=== PATIENT | male | born 2000 | race Caucasian/White ===

== ENCOUNTER 2021-08-03 08:16 | Day surgery (SDC) | payer OTHER ==
[~2021-08-03] VITALS: Ht 167.6 cm; Wt 55.0 kg
[2021-08-03] VITALS (139 sets, daily range): BP systolic 77–156; BP diastolic 40–111
--- NOTE | 2021-08-03 07:26 | NUR ---
PATIENT AMBULATORY TO ROOM. PATIENT IS ALERT AND ORIENTED X3. CONSENTS OBTAINED. VITALS OBTAINED. DR CONTRERAS NOTIFIED. NEW ORDERS RECEIVED. ADMISSION ASSESSMENT COMPLETED AT THIS TIME. IV ESTABLISHED. LABS SENT FOR REFERENCE. ORIENTED PATIENT TO ROOM AND UNIT. CALL LIGHT IN REACH. WILL CONTINUE TO MONITOR.
[2021-08-03 09:11] LABS: HEMATOCRIT 42.7 % (39.0-50.0); HEMOGLOBIN 13.6 g/dl (14.0-18.0); IMMATURE GRANULOCYTES 0.2 % (0.0-5.0); MEAN CELL VOLUME 88.6 fL CALC (80.0-100.0); MEAN CORPUSCULAR HGB 28.2 pG CALC (26.0-32.0); MEAN CORPUSCULAR HGB CONC 31.9 g/dL CAL (32.0-36.0); NEUT# 4.46 thou/uL (1.82-7.42); RED BLOOD COUNT 4.82 mill/uL (4.70-6.10); RED CELL DISTRI WIDTH 12.8 % (11.5-15.5)
[2021-08-03 09:27] LABS: ALBUMIN 4.2 g/dL (3.2-5.0); ALKALINE PHOSPHATASE 81 u/l (38-126); ANION GAP 13 (6-22 (CALC)); BILIRUBIN, TOTAL 0.5 mg/dL (0.0-1.4); BUN 15 mg/dL (9-20); BUN/CREATININE RATIO 16 (12-20 (CALC)); CARBON DIOXIDE 31 mmol/l (22-30); CHLORIDE 98 mmol/l (95-108); CREATININE 0.9 mg/dL (0.7-1.3); GFR > 60 ML/MIN (>=60 (CALC)); GFR FOR AFR.AMER. > 60 ML/MIN (>=60 (CALC)); POTASSIUM 3.7 mmol/l (3.5-5.1); SGOT/AST 24 u/l (17-59); SODIUM 138 mmol/l (137-146); TOTAL PROTEIN 6.9 g/dL (6.3-8.2)
--- NOTE | 2021-08-03 09:45 | NUR ---
DR CONTRERAS AT BEDSIDE AT THIS TIME.
--- NOTE | 2021-08-03 11:50 | NUR ---
Induction Note Patient to [facility] procedure room. Time out performed at 1150. Patient placed on monitors, Quinn hugger, bilateral wrist restraints applied for ET tube protection. Versed 5mg given IV push at 1150 Tourniquet applied to right arm Lidocaine 100mg given at 1151 IV push followed by Rocoronium 10mg at 1151 IV push and held for 90 seconds. Propofol bolus of mg given at IV push. Succinylcholine 80mg given IV push at 1152. Smooth intubation with 7.5 ETT. Positive CO2. Positive Auscultation for air exchange. Patient placed on ventilator for spontaneous ventilation. Placed on Propofol IV drip at 1153. OG inserted. Positive air on auscultation. Positive gastric content. Stomach washed at this time. Naltrexone 75mg given via OG tube. OG clamped for 45 minutes. Will monitor patient for symptoms of withdrawal and adjust propfol accordingly.
--- NOTE | 2021-08-03 13:00 | NUR ---
OG open note OG open at this time. Gastric content draining into drainage bag. OG to drain for 45 minutes. Propofol will be titrated down based on patient.
--- NOTE | 2021-08-03 13:45 | NUR ---
OG close note Stomach washed at this time. Naltrexone 50 mg with Clonidine 0.2 mg via OG tube. OG will be clamped for 45 minutes.
--- NOTE | 2021-08-03 15:00 | NUR ---
naltrexone 12.5mg given and clonidine 0.2mg given via og will prepare to extubate
--- NOTE | 2021-08-03 16:00 | NUR ---
Extubation note Closing medications given Benadryl 50mg IV push, Decadron 10mg IV push,Magnesium 4 grams IV, Zofran 8mg IV push, Octreotide 100mcg SC. Stomach washed out prior to extubation. Suctioned gastric content. OG removed. Patient extubated. Propofol Discontinued. Wrist restraints removed. Quinn hugger Removed. See [facility] Moderate sedate recovery record for further notes and assessment.
--- NOTE | 2021-08-03 16:35 | NUR ---
RECIEVED REPORT FROM RILEY MCKAY. PT ARRIVED TO FLOOR AT THIS TIME VIA BED IN STABLE CONDITION. VITALS COMPLETED. VSS. #20G RCA INFUSING WITH IVF PER ORDER. REPSIRATIONS SHALLOW ON ROOM AIR. NO SIGNS OF ANY DISTRESS. SAFTEY PRECAUTIONS IN PLACE WITH CALL LIGHT IN REACH. BED ALARM ACTIVE.
--- NOTE | 2021-08-03 20:21 | NUR ---
REPORT GIVEN BY KAILEY GAXIOLA. PATIENT RESTING IN BED. RESP EVEN AND UNLABORED. NO S/S OF DISTRESS NOTED. FALL AND SAFTEY PRECAUTIONS IN PLACE. PATIENT INFORMED TO CALL WITH ANY QUESTIONS OR CONCENRS. IV SALINE LOCKED. PATIENT DRINKING WATER AND SWALLOWING WELL. ALERT TO SELF.
--- NOTE | 2021-08-03 22:30 | NUR ---
PATIENT REMOVED ONE OF HIS IV'S
--- NOTE | 2021-08-04 01:00 | NUR ---
PATIENT REMOVED HIS OTHER IV SITE. NEW IV STARTED 20 RAC
[2021-08-04 02:34] VITALS: BP 114/66
[2021-08-04 05:19] LABS: HEMATOCRIT 38.1 % (39.0-50.0); HEMOGLOBIN 12.9 g/dl (14.0-18.0); IMMATURE GRANULOCYTES 0.4 % (0.0-5.0); MEAN CELL VOLUME 85.4 fL CALC (80.0-100.0); MEAN CORPUSCULAR HGB 28.9 pG CALC (26.0-32.0); MEAN CORPUSCULAR HGB CONC 33.9 g/dL CAL (32.0-36.0); NEUT# 11.79 thou/uL (1.82-7.42); RED BLOOD COUNT 4.46 mill/uL (4.70-6.10); RED CELL DISTRI WIDTH 12.9 % (11.5-15.5)
[2021-08-04 05:40] LABS: ALBUMIN 4.3 g/dL (3.2-5.0); ALKALINE PHOSPHATASE 80 u/l (38-126); BUN 14 mg/dL (9-20); BUN/CREATININE RATIO 18 (12-20 (CALC)); CHLORIDE 105 mmol/l (95-108); CREATININE 0.8 mg/dL (0.7-1.3); GFR > 60 ML/MIN (>=60 (CALC)); GFR FOR AFR.AMER. > 60 ML/MIN (>=60 (CALC)); MAGNESIUM 1.8 mg/dL (1.6-2.3); POTASSIUM 4.1 mmol/l (3.5-5.1); SGOT/AST 30 u/l (17-59); SODIUM 140 mmol/l (137-146); TOTAL PROTEIN 6.9 g/dL (6.3-8.2)
[2021-08-04 05:45] LABS: ANION GAP 17 (6-22 (CALC)); BILIRUBIN, TOTAL 0.8 mg/dL (0.0-1.4); CARBON DIOXIDE 22 mmol/l (22-30)
[2021-08-04 08:57] VITALS: BP 104/47
--- NOTE | 2021-08-04 10:46 | NUR ---
RECD REPORT FROM CUSTOMER ENERGY SPECIALIST, SHE STATED PT DID NOT SLEEP WELL LAST NIGHT, PT WAS SLEEPING IN BED ON RIGHT SIDE THIS MORNING.
--- NOTE | 2021-08-04 12:44 | NUR ---
Discharge instructions given. Patient verbalizes understanding of same. Discharged in stable condition via Ambulatory to Home with family. All belongings sent with pt.
== END 2021-08-04 12:44 | disposition home or self-care (01) | DRG 897 ==
LOC: ANR 08:16 → MS2 08:18 → ANR 08-04 12:44
PROVIDERS: ATTEND Anesthesiology
DX: F11.20 Opioid dependence, uncomplicated (principal)
CPT/HCPCS: J2060; J2354; J3475

== ENCOUNTER 2022-11-04 07:07 | Day surgery (SDC) | payer OTHER ==
[2022-11-04] VITALS (234 sets, daily range): BP systolic 80–175; BP diastolic 45–132
[~2022-11-04] VITALS: Ht 167.6 cm; Wt 55.0 kg
[2022-11-04 08:22] LABS: BASO% 0.5 % (0-3); EOS% 6.8 % (0-8); HEMATOCRIT 38.9 % (39.0-50.0); HEMOGLOBIN 12.6 g/dl (14.0-18.0); IMMATURE GRANULOCYTES 0.1 % (0.0-5.0); LYMPH% 41.9 % (15-41); MEAN CORPUSCULAR HGB 28.2 pG CALC (26.0-32.0); MEAN CORPUSCULAR HGB CONC 32.4 g/dL CAL (32.0-36.0); MONO% 5.8 % (2-13); NEUT# 3.42 thou/uL (1.82-7.42); NEUT% 44.9 % (42-76); RED BLOOD COUNT 4.47 mill/uL (4.70-6.10); RED CELL DISTRI WIDTH 12.6 % (11.5-15.5)
[2022-11-04 08:36] LABS: ALBUMIN 4.3 g/dL (3.2-5.0); ALKALINE PHOSPHATASE 52 u/l (38-126); ANION GAP 10 (6-22 (CALC)); BILIRUBIN, TOTAL 0.2 mg/dL (0.2-1.3); BUN 8 mg/dL (9-20); BUN/CREATININE RATIO 8 (12-20 (CALC)); CARBON DIOXIDE 32 mmol/l (22-30); CHLORIDE 102 mmol/l (95-108); GFR FOR AFR.AMER. > 60 ML/MIN (>=60 (CALC)); GFR OTHER RACES > 60 ML/MIN (>=60 (CALC)); SGOT/AST 20 u/l (17-59); SODIUM 140 mmol/l (137-146); TOTAL PROTEIN 6.7 g/dL (6.3-8.2)
[2022-11-04] MEDS ORDERED: VENTOLIN HFA108 MCG IN (09:17)
[2022-11-04] MEDS ORDERED: CLONIDINE0.1 MG PO (14:22)
[2022-11-04] MEDS ORDERED: NALTREXONE50 MG PO (14:22)
[2022-11-04] MEDS ORDERED: KLONOPIN2 MG PO (14:23)
[2022-11-05 03:55] LABS: HEMATOCRIT 39.8 % (39.0-50.0); MEAN CELL VOLUME 86.5 fL CALC (80.0-100.0); MEAN CORPUSCULAR HGB 28.3 pG CALC (26.0-32.0); MEAN CORPUSCULAR HGB CONC 32.7 g/dL CAL (32.0-36.0); MONO% 1.8 % (2-13); NEUT# 8.28 thou/uL (1.82-7.42); NEUT% 88.2 % (42-76); RED BLOOD COUNT 4.6 mill/uL (4.70-6.10); RED CELL DISTRI WIDTH 12.7 % (11.5-15.5)
[2022-11-05 04:10] LABS: ALBUMIN 4.2 g/dL (3.2-5.0); ALKALINE PHOSPHATASE 60 u/l (38-126); BUN 10 mg/dL (9-20); BUN/CREATININE RATIO 12 (12-20 (CALC)); CHLORIDE 110 mmol/l (95-108); CREATININE 0.9 mg/dL (0.7-1.3); GFR FOR AFR.AMER. > 60 ML/MIN (>=60 (CALC)); GFR OTHER RACES > 60 ML/MIN (>=60 (CALC)); POTASSIUM 4.4 mmol/l (3.5-5.1); SGOT/AST 28 u/l (17-59); SODIUM 145 mmol/l (137-146); TOTAL PROTEIN 6.7 g/dL (6.3-8.2)
[2022-11-05 04:15] LABS: ANION GAP 14 (6-22 (CALC)); BILIRUBIN, TOTAL 0.5 mg/dL (0.2-1.3); CARBON DIOXIDE 25 mmol/l (22-30)
[2022-11-05 04:30] VITALS: BP 100/41
[2022-11-05 07:12] VITALS: BP 89/50
[2022-11-05 07:35] VITALS: BP 89/50
[2022-11-05 08:32] VITALS: BP 106/66
[2022-11-05 09:58] VITALS: BP 110/60
== END 2022-11-05 15:12 | disposition home or self-care (01) | DRG 897 ==
LOC: MS2 07:07 → ANR 07:07 → MS2 17:59 → ANR 11-05 15:12 → MS2 11-05 15:12
PROVIDERS: ATTEND Anesthesiology Critical Care Medicine
DX: F11.20 Opioid dependence, uncomplicated (principal)
CPT/HCPCS: J2354; J3475